=== PATIENT | male | born 1990 | race Caucasian/White ===

== ENCOUNTER 2020-04-13 17:15 | Emergency (ER) | payer MEDICAID ==
[~2020-04-13] VITALS: Ht 188 cm; Wt 86.2 kg
[2020-04-13] MEDS ORDERED: PROPARACAINE OPHTH 0.5%, 15ML EACHEYE ONE (18:30)
[2020-04-13] MEDS ORDERED: FLUORESCEIN/BENOXINATE 5 ML DROPS OP ONE (18:30)
[2020-04-13] MEDS ORDERED: FLUORESCEIN OPHTHALMIC 1 MG STRIP ONE ×2 (19:01→19:03)
[2020-04-13] MEDS ORDERED: PROPARACAINE OPHTH 0.5%, 15ML ONE (19:02)
--- NOTE | 2020-04-13 19:11 | NUR ---
PT STATES WAKING UP THIS MORNING WITH INSENSE LEFT EYE PAIN, PT STATES BEING ABLE TO SEE OUT OF EYE BUT TAKES TIME TO FOCUS. PT SITTING IN EENT CHAIR, DOAN LAMP, FLOURICINE STRIP AND EYE DROPS AT BEDSIDE FOR PROVIDER. NO VITALS MACHINE AT BEDSIDE, WILL FIND ONE TO UPDATE VITALS. PT RESP EVEN/UNLABORED, PT STATES LFT EYE PAIN 9/10 AT THIS TIME.
[2020-04-13] MEDS ORDERED: CYCLOPENTOLATE OPHTH SOLN 1%, 15ML LEFTEYE SCH (20:00)
[2020-04-13] MEDS ORDERED: predniSOLONE OPHTH SUSP 1%, 5ML LEFTEYE ONE (20:00)
--- NOTE | 2020-04-13 20:18 | NUR ---
DROPS ORDERED FROM PHARMACY
[2020-04-13] MEDS ORDERED: CYCLOPENTOLATE 2% LEFTEYE ONE (20:30)
[2020-04-13] MEDS ORDERED: PREDNISOLONE 1% LEFTEYE ONE (20:30)
--- NOTE | 2020-04-13 20:37 | NUR ---
awaiting eye drops from pharmacy. per pharmacy admin eye drops 5 min apart from each other
[2020-04-13 21:09] VITALS: BP 130/84
== END 2020-04-13 21:30 | disposition home or self-care (01) ==
LOC: ED 19:30
DX: H20.00 Unspecified acute and subacute iridocyclitis (principal); F17.200 Nicotine dependence, unspecified, uncomplicated
CPT/HCPCS: 99283